=== PATIENT | male | born 1970 | race Caucasian/White ===

== ENCOUNTER → 2017-11-25 | Outpatient (CLI) | payer OTHER ==
[~2017-11-25] MED LIST: AZITHROMYCIN 2250 MG PO; BACTRIM DS TAB1 EACH PO; CHERACOL COUGH120 ML PO; COLCHICINE0.6 MG PO; IBUPROFEN 800800 M1 PO; KEFLEX500 MG PO; MUCINEX D TABL1 EACH; NORCO 5-325 TA1 EACH PO; PROVENTIL IN; ZOFRAN 4 MG ORAL4 M1 DIS
[2017-11-25 08:26] LABS: ALBUMIN 3.9 g/dL (3.4-5.0); ALKALINE PHOSPHATASE 83 U/L (46-116); CHOLESTEROL 187 mg/dL (<200); DIRECT BILIRUBIN 0.1 mg/dL (<0.1-0.3); HDL CHOLESTEROL 42 mg/dL (>40); LDL CHOLESTEROL 133 mg/dL (<100); SGOT 59 U/L (15-37); SGPT 176 U/L (30-65); TC:HDL 4.5 Ratio (Not establshd); TOTAL BILIRUBIN 0.4 mg/dL (<0.1-1.0); TOTAL PROTEIN 7.9 g/dL (6.4-8.2); TRIGLYCERIDE 60 mg/dL (<150); VLDL 12 mg/dL (<40)
[2017-11-25 08:28] LABS: SERUM ASSESSMENT Clear
[2017-11-25 08:45] LABS: % SATURATION 33 % (20-39); IRON 112 ug/dL (50-175)
[2017-11-25 08:50] LABS: PROTIME 10.2 Seconds (9.20-11.50)
[2017-11-27 10:08] LABS: ANA INTERPRETATION Negative (Negative)
== END ==
LOC: M.ULTRA 06:54 → M.LAB 06:54 → M.ULTRA 07:30
PROVIDERS: Internal Medicine Gastroenterology
DX: K76.0 Fatty (change of) liver, not elsewhere classified (principal); R94.5 Abnormal results of liver function studies

== ENCOUNTER 2020-12-24 13:25 | Inpatient (IN) | payer OTHER ==
[~2020-12-24] VITALS: Ht 177.8 cm; Wt 105.8 kg
[2020-12-24 13:38] VITALS: BP 160/56
[2020-12-24 14:03] LABS: ABSOLUTE LYMPHOCYTES 1.1 thou/uL (0.8-5.3); ABSOLUTE MONOCYTES 0.4 thou/uL (0.0-1.2); ABSOLUTE NEUTROPHILS 3.5 thou/uL (1.6-8.1); BASOPHILS 0.2 %; HEMATOCRIT 43.5 % (42.0-52.0); HEMOGLOBIN 14.8 gm/dL (14.0-18.0); LYMPHOCYTES 21.4 %; MCHC 33.9 g/dL (28.0-37.0); MCV 88.4 fL (80.0-100.0); MONOCYTES 7.4 %; MPV 10.3 fl. (7.2-11.1); NUCLEATED RBCS 0 /100WBC; PLATELET COUNT* 109 thou/uL (150-400); RBC 4.92 mil/uL (4.50-6.00); RDW-CV 13.5 % (10.5-14.5); WBC 4.9 thou/uL (4.0-11.0)
[2020-12-24 14:11] LABS: CALCIUM 8.2 mg/dL (8.5-10.1); CREATININE 1.2 mg/dL (0.6-1.3); POTASSIUM 4.3 mmol/L (3.5-5.1)
[2020-12-24 14:16] LABS: ALBUMIN 3.3 g/dL (3.4-5.0); TOTAL BILIRUBIN 0.3 mg/dL (<0.1-1.0); TOTAL PROTEIN 7.5 g/dL (6.4-8.2)
[2020-12-24 15:10] VITALS: BP 134/70
[2020-12-24 19:40] VITALS: BP 124/76
[2020-12-25] VITALS: BP 131/87
--- NOTE | 2020-12-25 00:12 | NUR ---
ASSUMED CARE OF PT AT 1900. PT IS ALERT AND OREINTED. VSS. PERRLA. NO COMPLAINTS OF PAIN. PT O2 IS INCREASED TO 8 LITERS. PT IS IN SINUS RYTHM ON THE TELEMETRY. PT IS RESTING COMFORTABLY IN BED. RESPIRATIONS ARE EVEN AND NONLABORED. WILL CONTINUE TO MONITOR PT.
[2020-12-25 04:00] VITALS: BP 127/81
[2020-12-25 08:00] VITALS: BP 125/76
[2020-12-25 08:19] LABS: CALCIUM 8.2 mg/dL (8.5-10.1)
--- NOTE | 2020-12-25 10:18 | NUR ---
RECEIVED REPORT AROUND 0715. ASSUMED CARE. VS AND ASSESSMENT CHARTED. IV INTACT RIGHT AC. HEART MONITOR ATTACHED AT SR. PAIN THIS AM. MEDS GIVEN PER MAY. PT UP ADLIB. LYING IN BED THIS AM. UPDATED ON PT. CALL LIGHT WITH IN REACH. WILL CONTINUE TO MONITOR.
--- NOTE | 2020-12-25 10:39 | EKG ---
[place] [address] ELECTROCARDIOGRAM REPORT Name: FRANCISCO DAVIS Room: [address] ADM IN [facility].#: [id number] Admission: 12/24/20 Attend Phys: Benson Holliday Discharge: Date of : 72 Date of Service: 12/24/20 1329 Report #: [id number] THIS REPORT FOR: //name// [facility] ED Test Date: 2020-12-24 Test Time: 13:29:16 Pat Name: FRANCISCO DAVIS Department: Room: [facility] Gender: M Reconditioner: JONI : 1970 Requested By: Jeronimo Lujan Order Number: [id number] MD: Ayden Way Measurements Intervals [place] Rate: 82 P: -14 MD: 113 QRS: 2 QRSD: 94 T: 33 QT: 342 QTc: 400 Interpretive Statements Sinus rhythm Borderline short MD interval Baseline wander in lead(s) V2,V4 No previous ECG available for comparison Electronically Signed On 12-25-2020 10:39:[address] [email or web address] <ELECTRONICALLY SIGNED> By: Ayden Way MD, FACC 12/25/[address] MD, [facility] /EPI
--- NOTE | 2020-12-25 11:44 | NUR ---
Covid positive. Spoke with via phone. A&O. Independent. No DME. No hx of HH or SNF. On 8L, continue to wean. Following for dc needs.
[2020-12-25 12:00] VITALS: BP 129/73
[2020-12-25 13:26] LABS: URINE BILIRUBIN NEGATIVE (Negative); URINE BLOOD NEGATIVE (Negative); URINE CLARITY CLEAR; URINE COLOR YELLOW; URINE GLUCOSE-RANDOM NEGATIVE (Negative); URINE KETONES NEGATIVE (Negative); URINE LEUKOCYTES-REFLEX NEGATIVE (Negative); URINE NITRITE-REFLEX NEGATIVE (Negative); URINE PROTEIN 1+ (Negative); URINE SPECIFIC GRAVITY 1.025 (1.005-1.030)
[2020-12-25 13:36] LABS: ABSOLUTE LYMPHOCYTES 1.3 thou/uL (0.8-5.3); ABSOLUTE MONOCYTES 0.5 thou/uL (0.0-1.2); ABSOLUTE NEUTROPHILS 4.6 thou/uL (1.6-8.1); BASOPHILS 0.2 %; HEMATOCRIT 44.1 % (42.0-52.0); LYMPHOCYTES 20.7 %; MCH 30.2 pg (26.0-34.0); MCHC 33.9 g/dL (28.0-37.0); MONOCYTES 7.7 %; MPV 9.8 fl. (7.2-11.1); NUCLEATED RBCS 0 /100WBC; PLATELET COUNT* 144 thou/uL (150-400); POLYS 71.4 %; RBC 4.95 mil/uL (4.50-6.00); RDW-CV 13.8 % (10.5-14.5); WBC 6.4 thou/uL (4.0-11.0)
[2020-12-25 13:44] LABS: APTT 32.5 Seconds (25.0-31.3); PROTIME 10.6 Seconds (9.20-11.50)
[2020-12-25 13:47] LABS: DIRECT BILIRUBIN 0.1 mg/dL (<0.1-0.3); TOTAL BILIRUBIN 0.3 mg/dL (<0.1-1.0); TOTAL PROTEIN 7.5 g/dL (6.4-8.2)
--- NOTE | 2020-12-25 16:47 | NUR ---
NO NEW CHANGES. PT LYING IN BED. PAIN ONLY IN THE AM. HOURLY ROUNDING PERFORMED. MEDS GIVEN PER MAY. ISOLATION INTACT. UPDATED THIS SHIFT. IV INTACT. HEART MONITOR ATTACHED AT SR. CALL LIGHT WITH IN REACH. WILL CONTINUE TO MONITOR.
[2020-12-25 19:30] VITALS: BP 142/77
[2020-12-25 23:27] VITALS: BP 124/75
--- NOTE | 2020-12-26 03:08 | NUR ---
ASSUMED CARE OF PT AT 1900. PT IS ALERT AND ORIENTED. VSS. PERRLA. PT IS ON 10 LITERS O2. PT IS IN SINUS RYTHM ON THE TELEMETRY. PT IS RESTING COMFORTABLY IN BED. RESPIRATIONS ARE EVEN AND NONLABORED. WILL CONTINUE TO MONITOR PT.
[2020-12-26 03:30] VITALS: BP 130/81
[2020-12-26 04:13] LABS: ABSOLUTE LYMPHOCYTES 1.4 thou/uL (0.8-5.3); ABSOLUTE MONOCYTES 0.8 thou/uL (0.0-1.2); ABSOLUTE NEUTROPHILS 6.8 thou/uL (1.6-8.1); BASOPHILS 0.1 %; HEMATOCRIT 43.5 % (42.0-52.0); HEMOGLOBIN 14.3 gm/dL (14.0-18.0); LYMPHOCYTES 15.8 %; MCH 29.4 pg (26.0-34.0); MONOCYTES 9.1 %; MPV 9.8 fl. (7.2-11.1); NUCLEATED RBCS 0 /100WBC; PLATELET COUNT* 170 thou/uL (150-400); RBC 4.88 mil/uL (4.50-6.00); RDW-CV 13.7 % (10.5-14.5); WBC 9.1 thou/uL (4.0-11.0)
[2020-12-26 04:33] LABS: ALBUMIN 3.1 g/dL (3.4-5.0); CALCIUM 8.3 mg/dL (8.5-10.1); CREATININE 1.1 mg/dL (0.6-1.3); MAGNESIUM 2.4 mg/dL (1.8-2.4); POTASSIUM 4.5 mmol/L (3.5-5.1); TOTAL BILIRUBIN 0.3 mg/dL (<0.1-1.0); TOTAL PROTEIN 6.7 g/dL (6.4-8.2)
[2020-12-26 04:44] LABS: PHOSPHORUS* 3.3 mg/dL (2.5-4.9)
--- NOTE | 2020-12-26 06:53 | NUR ---
OXYGEN TURNED UP TO 15 LITERS TO KEEP SPO2 GREATER THAN 90%
[2020-12-26 08:00] VITALS: BP 117/70
[2020-12-26 12:00] VITALS: BP 114/68
--- NOTE | 2020-12-26 13:14 | CON ---
[address] [address] CONSULTATION Name: FRANCISCO DAVIS Room: [address] IN M.R.#: [id number] Admission: 12/24/20 Attend Phys: Anum Umaña Discharge: Date of : 72 Report #: [id number] THIS REPORT FOR: cc: Deuce Burnette MD, Bruce D. MD Pervez, Adeel MD ~ DATE OF CONSULTATION: 12/25/2020 REQUESTING PHYSICIAN: Consult has been requested by Dr. Holliday. INDICATION FOR CONSULTATION: Acute hypoxemic respiratory failure secondary to COVID-19. HISTORY OF PRESENT ILLNESS: This is a 50-year-old gentleman. He does not have a previous history of cardiac or respiratory disease. He is overweight with a body mass index of 32. He has not been vaccinated for COVID-19. The patient now started having symptoms last Friday, has reported to have had new onset shortness of breath. He says he is coughing. He is bringing up small amounts of sputum, in fact has brought up small amounts of blood as well. He has been febrile. He initially had significant nausea, but did not have vomiting. Does not have abdominal pain, diarrhea or constipation. The patient is also reported to be wheezing on exam. Upon arrival, he was found to be hypoxemic on room air with an O2 saturation of only 81%. He was placed on 4 liters oxygen via nasal cannula, which brought his O2 saturation up to the low 90s yesterday. Since yesterday, there has been worsening in his oxygen needs, now up to 8 liters oxygen via nasal cannula, he is saturating 93%. He primarily has shortness of breath on exertion at this time. He still appears to be comfortable at rest. He says he has brought up some more blood today. He does not have chest pain. There is no swelling of lower extremities or calf pain. His nausea has now subsided. REVIEW OF SYSTEMS: For 12 points is negative except as mentioned above. PAST MEDICAL HISTORY: Obesity with a body mass index of 32, right heel fracture, bilateral carpal tunnel syndrome, pars defect, spinal stenosis. SOCIAL HISTORY: Lifetime nonsmoker. No known history of heavy alcohol use or illegal drug use. CURRENT MEDICATIONS: List in [facility] reviewed. HOME MEDICATIONS: List also in [facility]ape reviewed. FAMILY HISTORY: He does not have a history in the family [place] [address] CONSULTATION Name: FRANCISCO DAVIS Room: [address]#: [id number] Admission: 12/24/20 Attend Phys: Anum Umaña Discharge: Date of : 72 Report #: [id number] COVID-19. ALLERGIES: HE IS REPORTED TO HAVE HAD EITHER AN ALLERGY OR INTOLERANCE TO PERCOCET AND DARVOCET. PHYSICAL EXAMINATION: GENERAL: He is alert, awake and oriented, does not appear to be in any distress at this time; however, it is noted that his oxygen needs have come up from 4 liters yesterday to 8 liters now. VITAL SIGNS: With 8 liters of oxygen, he is saturating 91-93%. Pulse 77, blood pressure 129/73. He is afebrile with a temperature of 36.9. HEENT: Head is normocephalic and atraumatic. NECK: Does not show raised JVP, asymmetry, mass or lymph nodes. CHEST: Symmetrical expansion on inspection and palpation. On auscultation, breath sounds are bilaterally equal. No added sounds. HEART: Regular. There is no murmur. ABDOMEN: Soft and nontender. EXTREMITIES: Lower extremities show no edema. There is no calf tenderness. SKIN: Dry and intact. NEUROLOGIC: Moves all extremities bilaterally equally and spontaneously with no focal deficit identified. LABORATORY DATA: The patient's chest x-ray shows extensive bilateral infiltrates consistent with acute lung injury secondary to COVID-19. The patient's lab work is in [facility] and is also reviewed. Elevation in LFTs is noted. His CPK yesterday was elevated, this is also noted. I have ordered more lab work, which is pending at this time. ASSESSMENT/PLAN: 1. Acute hypoxemic respiratory failure secondary to COVID-19. Recommend ambulating to chair. Continue to titrate oxygen. Avoid supine sleep. If possible, sleep prone, otherwise on sides. He is overweight and therefore if his respiratory status worsens, then I will have a low threshold of placing him on BiPAP. 2. COVID-19. I agree with dexamethasone. I did not change the dose at this time. We will follow along and adjust per his clinical status. He is also on remdesivir. I agree with remdesivir. His LFTs are elevated. I still feel the benefit of giving him remdesivir outweighs risk and we will therefore continue to follow LFTs closely. Considering that his oxygen requirements are worsening and he has come up from 4 liters oxygen yesterday to 8 liters now, I recommend that we go ahead and give him 1 dose of Actemra as well. I do not feel strongly either way regarding giving him or holding off on convalescent plasma. We will follow his C-reactive protein. 3. Pulmonary infiltrates. Primarily this is secondary to COVID-19, however, [facility] [address] [place] [address] CONSULTATION Name: FRANCISCO DAVIS Room: [address] IN [facility].#: [id number] Admission: 12/24/20 Attend Phys: Anum Umaña Discharge: Date of : 72 Report #: [id number] noted that the patient has extensive infiltrates and he is also having hemoptysis. Therefore, I will go ahead and start him on doxycycline as well as ceftriaxone. We will send off a culture as well as nasal swab for MRSA before starting the antibiotics. 4. Hemoptysis/mild elevation in D-dimer/evaluation for thromboembolic phenomena. He is on a full dose Lovenox. He also has had some hemoptysis. We are going to obtain a CTA chest as well as venous Dopplers and then we will assess his Lovenox dose. If both of them are negative, then I will be inclined to cut back Lovenox to intermediate dose. 5. Elevated CPK/fluids and electrolytes. I decided to only watch for now. We will reassess labs and see trend and then treat as indicated. 6. Hyperglycemia. We will order an insulin sliding scale. 7. Clostridium difficile prophylaxis, Lactinex. 8. Gastrointestinal prophylaxis. We will add Protonix. Thanks for this consultation. <ELECTRONICALLY SIGNED> By: Mathieu Farooq MD 12/26/20 1314 1310 1952AMD slime Dimas
--- NOTE | 2020-12-26 17:33 | NUR ---
RECEIVED REPORT AROUND 0715. ASSUMED CARE. VS AND ASSESSMENT CHARTED. IV INTACT. HEART MONITOR ATTACHED AT SR. PT UP IN CHAIR. SAT IN CHAIR MOST OF DAY. MEDS GIVEN PER MAR. PAIN THIS AM. UPDATED . CALL LIGHT WITH IN REACH. WILL CONTINUE TO MONITOR.
[2020-12-26 19:30] VITALS: BP 130/78
[2020-12-26 23:56] VITALS: BP 129/70
--- NOTE | 2020-12-27 01:37 | NUR ---
ASSUMED CARE OF PT AT 1900. PT IS ALERT AND ORIENTED. VSS. PERRLA. NO COMPLAINTS OF PAIN. PT IS REFUSING HIS BIPAP. PT REMAINS ON 12 LITERS O2. PT IS IN SINUS RYTHM ON THE TELEMETRY. PT IS RESTING COMFORTABLY IN BED. RESPIRATIONS ARE EVEN AND NONLABORED. WILL CONTINUE TO MONITOR PT.
[2020-12-27 04:00] VITALS: BP 126/76
[2020-12-27 07:58] VITALS: BP 135/75
[2020-12-27 09:38] LABS: CALCIUM 8.4 mg/dL (8.5-10.1); CREATININE 1.1 mg/dL (0.6-1.3); POTASSIUM 4.4 mmol/L (3.5-5.1)
[2020-12-27 11:39] VITALS: BP 113/69
--- NOTE | 2020-12-27 14:24 | NUR ---
Anticipate dc in a few days. Pt on 12 L, continue to wean.
[2020-12-27 15:40] VITALS: BP 124/78
[2020-12-27 21:29] VITALS: BP 134/70
[2020-12-28] VITALS (7 sets, daily range): BP systolic 118–132; BP diastolic 62–88
[2020-12-28 04:15] LABS: HEMATOCRIT 41.3 % (42.0-52.0); HEMOGLOBIN 13.6 gm/dL (14.0-18.0); MCH 29.5 pg (26.0-34.0); MCV 89.5 fL (80.0-100.0); MPV 9.6 fl. (7.2-11.1); NUCLEATED RBCS 0 /100WBC; PLATELET COUNT* 185 thou/uL (150-400); RBC 4.62 mil/uL (4.50-6.00); RDW-CV 13.9 % (10.5-14.5); WBC 11.3 thou/uL (4.0-11.0)
[2020-12-28 04:31] LABS: PHOSPHORUS* 4.6 mg/dL (2.5-4.9)
[2020-12-28 04:35] LABS: ALBUMIN 2.9 g/dL (3.4-5.0); CALCIUM 7.8 mg/dL (8.5-10.1); CREATININE 1.1 mg/dL (0.6-1.3); MAGNESIUM 2.5 mg/dL (1.8-2.4); POTASSIUM 4.6 mmol/L (3.5-5.1); TOTAL BILIRUBIN 0.4 mg/dL (<0.1-1.0); TOTAL PROTEIN 6.2 g/dL (6.4-8.2)
--- NOTE | 2020-12-28 05:47 | NUR ---
PT IS ABLE TO COMMUNICATE HIS NEEDS TO STAFF EFFECTIVELY. HE HAS DENIED THE NEED FOR PAIN MEDICATION UP TO THIS TIME. O2 NC ON AND O2 SAT MONITORED AT THIS TIME. PT REFUSED MEDS AT HS, SAYING: "I JUST WANT TO SLEEP".
[2020-12-28 06:16] LABS: ABSOLUTE LYMPHOCYTES 0.9 thou/uL (0.8-5.3); ABSOLUTE MONOCYTES 0.9 thou/uL (0.0-1.2); ABSOLUTE NEUTROPHILS 9.5 thou/uL (1.6-8.1); PLATELET ESTIMATE ADEQUATE
[2020-12-28 06:17] LABS: ANISOCYTOSIS 1+; POIKILOCYTOSIS 1+
--- NOTE | 2020-12-28 14:03 | NUR ---
Anticipate dc in 1-2 days. Covid positive. On 10L, continue to wean. Ex ox at dc.
[2020-12-29 00:06] VITALS: BP 129/79
--- NOTE | 2020-12-29 05:29 | NUR ---
PT IS ABLE TO COMMUNICATE HIS NEEDS TO STAFF EFFECTIVELY. CURRENT PAIN MEDICATION REGIMEN HAS BEEN ADEQUATE FOR CONTROLLING HIS PAIN UP TO THIS TIME. CONTINUOUS PULSE OX MAINTAINED.
[2020-12-29 05:50] VITALS: BP 128/80
[2020-12-29 08:00] VITALS: BP 140/85
--- NOTE | 2020-12-29 09:56 | NUR ---
Seen for early LOS: Dx covid+, acute respiratory failure. Electrolyte replacement, lasix, probiotic, convelescent plasme, remdesivir, ABT in place. Labs reviewed, elevated LFTs, BUN 31, alb 2.9. Regular diet with im proved intakes noted as respiratory distress is reduced. Weight stable. BMI 33.5-obese I. Low nutrition risk at this time.
[2020-12-29] MEDS ORDERED: DOXYCYCLINE 10100 MG PO (11:31)
[2020-12-29] MEDS ORDERED: PREDNISONE 10 M10 MG PO (11:31)
--- NOTE | 2020-12-29 12:02 | NUR ---
CARE ASSUMED FROM KEKE FERMIN.
--- NOTE | 2020-12-29 14:48 | NUR ---
Pt wanting to leave AMA. On 10-11L, wean. Ex ox to be completed. Covid positive.
[2020-12-29 16:00] VITALS: BP 119/68
[2020-12-30 00:20] VITALS: BP 144/60
[2020-12-30 03:49] LABS: ABSOLUTE LYMPHOCYTES 1.2 thou/uL (0.8-5.3); ABSOLUTE MONOCYTES 0.9 thou/uL (0.0-1.2); ABSOLUTE NEUTROPHILS 12.6 thou/uL (1.6-8.1); BASOPHILS 0.2 %; HEMATOCRIT 43.5 % (42.0-52.0); HEMOGLOBIN 14.5 gm/dL (14.0-18.0); LYMPHOCYTES 8.5 %; MCH 29.5 pg (26.0-34.0); MCHC 33.3 g/dL (28.0-37.0); MCV 88.6 fL (80.0-100.0); MONOCYTES 5.9 %; NUCLEATED RBCS 0 /100WBC; PLATELET COUNT* 217 thou/uL (150-400); POLYS 85.4 %; RBC 4.91 mil/uL (4.50-6.00); RDW-CV 13.5 % (10.5-14.5); WBC 14.7 thou/uL (4.0-11.0)
[2020-12-30 04:08] LABS: ALBUMIN 3.2 g/dL (3.4-5.0); CALCIUM 8.2 mg/dL (8.5-10.1); CREATININE 1.1 mg/dL (0.6-1.3); MAGNESIUM 2.6 mg/dL (1.8-2.4); POTASSIUM 4.9 mmol/L (3.5-5.1); TOTAL BILIRUBIN 0.5 mg/dL (<0.1-1.0); TOTAL PROTEIN 7.1 g/dL (6.4-8.2)
--- NOTE | 2020-12-30 04:16 | NUR ---
PT ALERT AND ORIENTED, RECEIVED MEDS SCHEDULED. HHFC 12L OVERNIGHT. SLEPT WELL. HE DID REQUEST TYLENOL AT BEDTIME FOR HEADACHE. HAD BRIEF EPISODE OF TACHYCARDIA (160'S) OVERNIGHT. WENT TO CHECK ON HIM AND HE WAS ASLEEP/ OTHERWISE SINUS RHYTHM ON MONITOR OVERNIGHT WITHOUT COMPLICATIONS.
[2020-12-30 04:33] VITALS: BP 134/80
[2020-12-30 08:00] VITALS: BP 141/88
[2020-12-30 12:00] VITALS: BP 145/82
[2020-12-30 16:00] VITALS: BP 144/83
[2020-12-30 20:28] VITALS: BP 140/79
[2020-12-31 00:12] VITALS: BP 132/79
[2020-12-31 04:13] LABS: ABSOLUTE LYMPHOCYTES 1.2 thou/uL (0.8-5.3); ABSOLUTE MONOCYTES 0.8 thou/uL (0.0-1.2); BASOPHILS 0.1 %; MCH 29.5 pg (26.0-34.0); WBC 13.4 thou/uL (4.0-11.0)
[2020-12-31 04:15] LABS: ABSOLUTE NEUTROPHILS 11.3 thou/uL (1.6-8.1); HEMATOCRIT 43.5 % (42.0-52.0); HEMOGLOBIN 14.4 gm/dL (14.0-18.0); LYMPHOCYTES 9.3 %; MCHC 33.2 g/dL (28.0-37.0); MONOCYTES 5.8 %; MPV 9.8 fl. (7.2-11.1); NUCLEATED RBCS 0 /100WBC; PLATELET COUNT* 244 thou/uL (150-400); POLYS 84.8 %; RBC 4.88 mil/uL (4.50-6.00); RDW-CV 13.6 % (10.5-14.5)
[2020-12-31 04:23] LABS: ALBUMIN 3.3 g/dL (3.4-5.0); CALCIUM 8.4 mg/dL (8.5-10.1); CREATININE 1.1 mg/dL (0.6-1.3); MAGNESIUM 2.6 mg/dL (1.8-2.4); POTASSIUM 4.7 mmol/L (3.5-5.1); TOTAL BILIRUBIN 0.5 mg/dL (<0.1-1.0); TOTAL PROTEIN 7.1 g/dL (6.4-8.2)
[2020-12-31 04:29] VITALS: BP 143/92
--- NOTE | 2020-12-31 05:36 | NUR ---
PT DOES NOT WANT TO BE WOKE UP AT NIGHT SO HE RECEIVED HIS MEDS SCHEDULED AND WAS ASLEEP ALL SHIFT. HE IS CURRENTLY ON 6L HHFC. UP AD ALLAN, TYLENOL FOR HEADACHE AT BEDTIME. NO WORSENING OF CONDITION. SINUS RHYTHM ON MONITOR.
[2020-12-31 08:29] VITALS: BP 143/92
[2020-12-31] MEDS ORDERED: VITAMIN B-1100 M2 PO (10:10)
[2020-12-31] MEDS ORDERED: PNV 29-1 TABLE1 EACH PO (10:10)
--- NOTE | 2020-12-31 11:04 | NUR ---
Assumed care of pt at 0700, received report from KEKE Perkins. Pt A&OX4, afebrile, and very agitated. Pt demanding to leave, is not compliant with any interventions at this point forward. Pt refuisng vitals, medications, and respiratory interventions. Pt made it difficult for RT to complete their portion of the discharge respiratory read for the oygen therapy requirment met upon dishcharge. Pt verbally understood the dishcarge teaching prior to discharging from the facility. PIV removed and pressure dressing in place. Pt discharged with all belongings in the presence of nursing staff and his spouse. Pt left with O2 tank provided by [facility] and instructed how to use it and what to do with it. Pt verbally understands. Pt left on his terms on his condition, pt understood the risks he took discharging from the hospital.
== END 2020-12-31 11:00 | disposition home or self-care (01) | DRG 177 ==
LOC: M.ERS 13:25 → M.ORTHSURG 14:15 → M.TBA-ER 14:15 → M.ORTHSURG 15:30
PROVIDERS: Family Medicine; Internal Medicine Critical Care Medicine; ADMIT Internal Medicine; ATTEND Internal Medicine
PROC: XW033E5 Introduction of Remdesivir Anti-infective into Peripheral Vein, Percutaneous Approach, New Technology Group 5 (ICD-10-PCS; principal; 2020-12-24)
PROC: 5A0945A Assistance with Respiratory Ventilation, 24-96 Consecutive Hours, High Flow/Velocity Cannula (ICD-10-PCS; 2020-12-25)
PROC: 5A09357 Assistance with Respiratory Ventilation, Less than 24 Consecutive Hours, Continuous Positive Airway Pressure (ICD-10-PCS; 2020-12-27)
PROC: 5A0935A Assistance with Respiratory Ventilation, Less than 24 Consecutive Hours, High Flow/Velocity Cannula (ICD-10-PCS; 2020-12-28)
PROC: XW13325 Transfusion of Convalescent Plasma (Nonautologous) into Peripheral Vein, Percutaneous Approach, New Technology Group 5 (ICD-10-PCS; 2020-12-28)
PROC: 5A0935A Assistance with Respiratory Ventilation, Less than 24 Consecutive Hours, High Flow/Velocity Cannula (ICD-10-PCS; 2020-12-30)
PROC: 5A0935A Assistance with Respiratory Ventilation, Less than 24 Consecutive Hours, High Flow/Velocity Cannula (ICD-10-PCS; 2020-12-31)
DX: U07.1 COVID-19 (principal); J96.01 Acute respiratory failure with hypoxia; J12.82 Pneumonia due to coronavirus disease 2019; R04.2 Hemoptysis; F10.139 Alcohol abuse with withdrawal, unspecified; R73.9 Hyperglycemia, unspecified; E66.9 Obesity, unspecified; J98.01 Acute bronchospasm; Z87.81 Personal history of (healed) traumatic fracture; Z88.6 Allergy status to analgesic agent; Z68.33 Body mass index [BMI] 33.0-33.9, adult